=== PATIENT | female | born 1940 | race Caucasian/White ===

== ENCOUNTER 2024-10-09 13:09 | Emergency (ER) | payer OTHER, MEDICARE, SELFPAY ==
[2024-10-09 13:14] VITALS: BP 160/84; PULSE 86; TEMP 36.6; O2SAT 97; BMI 24.2
--- NOTE | 2024-10-09 13:29 | PC.NURSE ---
pt is able to swallow and keep things down, air way is patent. ER DR assessment complete
--- NOTE | 2024-10-09 13:32 | ED.GENADUL1 ---
HPI HPI - General Adult General Chief complaint: Skin/Abscess/Foreign Body Stated complaint: something stuck in throat Time Seen by Provider: 10/09/24 13:20 Mode of arrival: walk-in History of Present Illness HPI narrative: 84-year-old female presents to the emergency department for foreign body stuck in the back of her throat. She states 45 minutes ago she was eating a BLT and feels like there is a piece of plastic back there. She has been able to eat a piece of bread and drink liquids. She states nothing like this is ever happened to her before. Related Data Home Medications ?Medication ?Instructions ?Recorded ?Confirmed alprazolam 0.5 mg tablet 0.5 mg PO TID 10/09/24 10/09/24 amlodipine 2.5 mg tablet 2.5 mg PO DAILY 10/09/24 10/09/24 buspirone 15 mg tablet 15 mg PO TID 10/09/24 10/09/24 celecoxib 200 mg capsule 200 mg PO BID 10/09/24 10/09/24 donepezil 5 mg tablet 5 mg PO QPM 10/09/24 10/09/24 furosemide 20 mg tablet 20 mg PO BID 10/09/24 10/09/24 levothyroxine 100 mcg tablet 100 mcg PO QAM 10/09/24 10/09/24 losartan 100 mg tablet 150 mg PO DAILY 10/09/24 10/09/24 pantoprazole 40 mg tablet,delayed 40 mg PO DAILY 10/09/24 10/09/24 release venlafaxine 75 mg tablet 75 mg PO TID 10/09/24 10/09/24 Allergies Allergy/AdvReac Type Severity Reaction Status Date / Time No Known Drug Allergies Allergy Verified 10/09/24 13:23 Opioid HPI Opioid Management Most Recent Opioid Data: No Data to Display Review of Systems ROS Narrative A ten point review of systems is negative except as noted above. [facility] Medical History (Updated 10/09/24 @ 14:34 by Spencer Baez MD) Anxiety ?F41.9 - Anxiety disorder, unspecified (ICD-10) GERD (gastroesophageal reflux disease) ?K21.9 - Gastro-esophageal reflux disease without esophagitis (ICD-10) Hypothyroidism ?E03.9 - Hypothyroidism, unspecified (ICD-10) HTN (hypertension) ?I10 - Essential (primary) hypertension (ICD-10) Exam Narrative Exam Narrative: Nurses note and vital signs reviewed and patient is not hypoxic. General: The patient appears well and in no apparent distress. Patient is resting comfortably on cart. Skin: Warm, dry, no pallor noted. There is no rash noted. Head: Normocephalic, atraumatic Eye: Normal conjunctiva, no drainage Ears, Nose, Mouth, and Throat: oral mucosa is moist. Nares patent. No foreign body is visible. Uvula is midline. No swelling to the floor of her mouth. No pharyngeal exudate or swelling. Cardiovascular: Regular Rate and Rhythm Respiratory: Patient is in no distress, no accessory muscle use, lungs are clear to auscultation, no wheezing, rales or rhonchi Back: non-tender GI: Soft and nontender Musculoskeletal: The patient has no evidence of calf tenderness, no pitting edema, symmetrical pulses noted bilaterally Neurological: A&O, normal speech; hard of hearing Psychiatric: Cooperative Constitutional Vital Signs, click to edit/add: Last Vital Signs Temp 97.9 F 10/09/24 13:14 Pulse 86 10/09/24 13:14 Resp 18 10/09/24 13:14 BP 160/84 H 10/09/24 13:14 Pulse Ox 97 10/09/24 13:14 O2 Del Method Room Air 10/09/24 13:14 Course Vital Signs Vital signs: Vital Signs Temperature 97.9 F 10/09/24 13:14 Pulse Rate 86 10/09/24 13:14 Respiratory Rate 18 10/09/24 13:14 Blood Pressure 160/84 H 10/09/24 13:14 Pulse Oximetry 97 10/09/24 13:14 Oxygen Delivery Method Room Air 10/09/24 13:14 Temperature 97.9 F 10/09/24 13:14 Pulse Rate 86 10/09/24 13:14 Respiratory Rate 18 10/09/24 13:14 Blood Pressure 160/84 H 10/09/24 13:14 Pulse Oximetry 97 10/09/24 13:14 Oxygen Delivery Method Room Air 10/09/24 13:14 Medical Decision Making MDM Narrative Medical decision making narrative: CAT scan shows no foreign body. The patient is referred to ENT if symptoms persist. Treatment diagnosis and follow-up were discussed with the patient. Differential Diagnosis Differential Diagnosis: Foreign body, foreign body sensation Imaging Data CT neck: Radiologist's impression: No acute process, no radiopaque object identified Discharge Plan Discharge Chief Complaint: Skin/Abscess/Foreign Body Clinical Impression: Foreign body sensation in throat Patient Disposition: Home, Self-Care Time of Disposition Decision: 14:33 Condition: Good Mode of Transportation: Private Vehicle Prescriptions / Home Meds: No Action alprazolam 0.5 mg tablet 0.5 mg PO TID Patient Comments: 2 tabs in the evening amlodipine 2.5 mg tablet 2.5 mg PO DAILY buspirone 15 mg tablet 15 mg PO TID celecoxib 200 mg capsule 200 mg PO BID donepezil 5 mg tablet 5 mg PO QPM furosemide 20 mg tablet 20 mg PO BID levothyroxine 100 mcg tablet 100 mcg PO QAM losartan 100 mg tablet 150 mg PO DAILY pantoprazole 40 mg tablet,delayed release (DR/EC) 40 mg PO DAILY venlafaxine 75 mg tablet 75 mg PO TID Print Language: Occitan Instructions: Foreign Body in the Pharynx (ED) Referrals: Brayden Sharp DO [Primary Care Provider] - 1 week Bianka Davis MD [Physician] - 1 week
== END 2024-10-09 14:45 | disposition home or self-care (01) ==
PROVIDERS: Emergency Provider Emergency Medicine; PCP Family Medicine
DX: R09.A2 Foreign body sensation, throat (principal)
CPT/HCPCS: 70490; 99284